=== PATIENT | male | born 1990 | race Caucasian/White ===

== ENCOUNTER 2023-03-20 06:16 | Emergency (ER) | payer MEDICAID ==
[~2023-03-20] VITALS: Ht 188 cm; Wt 118.0 kg
[2023-03-20 08:27] VITALS: BP 155/108; PULSE 77; RESP 17; TEMP 98.8; O2SAT 99
== END 2023-03-20 09:26 | disposition left against medical advice (07) ==
LOC: ER 06:29
DX: T23.111A Burn of first degree of right thumb (nail), initial encounter (principal); X11.8XXA Contact with other hot tap-water, initial encounter; Y93.89 Activity, other specified; Y92.89 Other specified places as the place of occurrence of the external cause; Y99.8 Other external cause status; Z53.21 Procedure and treatment not carried out due to patient leaving prior to being seen by health care provider
CPT/HCPCS: 99281